=== PATIENT | female | born 1980 | race Caucasian/White ===

== ENCOUNTER 2021-03-13 18:29 | Inpatient (IN) ==
[2021-03-13] MEDS ORDERED: BUTORPHANOL 2 MG/ML VIAL IV PRN (19:51)
[2021-03-13] MEDS ORDERED: ONDANSETRON 4 MG/2 ML VIAL IV PRN (19:51)
[2021-03-13] MEDS ORDERED: MEPERIDINE 50 MG/1 ML VIAL IV PRN (19:51)
[2021-03-13] MEDS ORDERED: LACTATED RINGERS 1,000 ML IV SCH (20:00)
[2021-03-13 20:10] LABS: Basophils % 0.1 % (0.0-0.8); Eosinophils # 0.1 10*3/uL (0.0-0.87); Eosinophils % 0.9 % (0.00-10.9); Hematocrit 33.4 VOL% (35.7-47.0); Hemoglobin 11.2 GM/DL (12.0-16.0); Immature Granulocytes % 0.9 %; Immature Granulocytes Absolute 0.08 #; Lymphocytes # 1.2 10*3/uL (1.4-4.0); Lymphocytes % 13.8 % (21.3-54.2); Mean Corpuscular HGB Conc 33.5 GM/DL (32-36); Mean Platelet Volume 10.3 FL (9.6-12.0); Monocytes % 9.3 % (1.7-12.7); Platelet Count 148 T/CUMM (130-400); Red Blood Count 3.71 MC/CUMM (3.8-5.5); Red Cell Distribution Width 16.5 % (9.3-17.3); White Blood Count 8.5 T/CUMM (4-12)
[2021-03-13 20:32] LABS: Albumin 2.3 G/DL (3.4-5.0); Bilirubin,Total 0.5 MG/DL (0.20-1.00); Calcium 9.5 MG/DL (8.5-10.1); Osmolality,Calculated 273.7 MOS/KG (273-304); Potassium 4.1 MMOL/L (3.5-5.1)
[2021-03-13] MEDS ORDERED: ALUMINUM/MAGNES/SIMETH MAX STR 30 ML UDCUP PO PRN (22:58)
[2021-03-14] MEDS ORDERED: ACETAMINOPHEN 325 MG TABLET PO PRN ×2 (10:57→14:08)
[2021-03-14] MEDS ORDERED: TRANEXAMIC ACID 1,000 MG/10 ML VIAL ONE (13:01)
[2021-03-14] MEDS ORDERED: miSOPROStoL 200 MCG TABLET ONE (13:01)
[2021-03-14] MEDS ORDERED: SODIUM CHLORIDE 0.9% 100 ML IV ONE (13:02)
[2021-03-14] MEDS ORDERED: OXYTOCIN/LR 20 UNIT/1,000 ML BAG IV ONE ×2 (13:02→14:08)
[2021-03-14] MEDS ORDERED: METHYLERGONOVINE 0.2 MG/1 ML AMP ONE (13:02)
[2021-03-14] MEDS ORDERED: CARBOPROST TROMETHAMINE 250 MCG/ML AMP IM ONE (13:02)
[2021-03-14] MEDS ORDERED: LIDOCAINE 2% 20 ML VIAL ONE (13:03)
[2021-03-14] MEDS ORDERED: BISACODYL 10 MG SUPP RECTAL PRN (14:08)
[2021-03-14] MEDS ORDERED: DIPH/TET/ACEL PERT BOOSTER VACCINE 0.5 ML VIAL IM ONE (14:08)
[2021-03-14] MEDS ORDERED: HYDROCORTISONE 2.5% RECTAL CREAM 30 GM TUBE TOP PRN (14:08)
[2021-03-14] MEDS ORDERED: MEASLES/MUMPS/RUBELLA VACCINE 0.5 ML VIAL SUBCUT ONE (14:08)
[2021-03-14] MEDS ORDERED: ONDANSETRON 4 MG/2 ML VIAL IV PRN (14:08)
[2021-03-14] MEDS ORDERED: RHO(D) IMMUNE GLOBULIN 300 MCG SYRINGE IM ONE (14:08)
[2021-03-14] MEDS ORDERED: ACETAMINOPHEN/CODEINE 300-30 MG TABLET PO PRN ×2 (14:08)
[2021-03-14] MEDS ORDERED: LANOLIN 50% CREAM 0.3 OZ TUBE TOP PRN (14:08)
[2021-03-14] MEDS ORDERED: BENZOCAINE 20%/MENTHOL 0.5% SPRAY 56 GM CAN TOP PRN (14:08)
[2021-03-14] MEDS ORDERED: WITCH HAZEL PADS 100/JAR TOP PRN (14:08)
[2021-03-14 14:16] LABS: Cord Venous Blood HCO3 21.7 MMOL/L; Cord Venous Blood PCO2 37.1 MMHG; Cord Venous Blood PO2 29.4 MMHG
[2021-03-14] MEDS: IBUPROFEN 800 MG TABLET PO PRN (19:22)
[2021-03-14] MEDS: DOCUSATE SODIUM 100 MG CAPSULE PO SCH (21:49)
[2021-03-15] MEDS: IBUPROFEN 800 MG TABLET PO PRN ×2 (03:25→09:46)
[2021-03-15 06:06] LABS: Basophils % 0.4 % (0.0-0.8); Eosinophils # 0.2 10*3/uL (0.0-0.87); Eosinophils % 1.4 % (0.00-10.9); Hematocrit 32.1 VOL% (35.7-47.0); Hemoglobin 10.6 GM/DL (12.0-16.0); Immature Granulocytes % 0.9 %; Lymphocytes # 1.7 10*3/uL (1.4-4.0); Lymphocytes % 15.9 % (21.3-54.2); Mean Corpuscular Volume 90.7 FL (87-102); Mean Platelet Volume 10.9 FL (9.6-12.0); Monocytes % 8.9 % (1.7-12.7); Neutrophils % 72.5 % (38.7-73.9); Platelet Count 156 T/CUMM (130-400); Red Blood Count 3.54 MC/CUMM (3.8-5.5); Red Cell Distribution Width 16.4 % (9.3-17.3); White Blood Count 10.6 T/CUMM (4-12)
[2021-03-15] MEDS: DOCUSATE SODIUM 100 MG CAPSULE PO SCH ×2 (08:54→21:12)
[2021-03-15] MEDS: FERROUS SULFATE 325 MG TABLET PO SCH (08:54)
[2021-03-15] MEDS: MULTIVITAMIN (PRENATAL) TABLET PO SCH (08:54)
[2021-03-15] MEDS ORDERED: RHO(D) IMMUNE GLOBULIN 300 MCG SYRINGE IM ONE (09:20)
[2021-03-16] MEDS: IBUPROFEN 800 MG TABLET PO PRN (07:30)
[2021-03-16] MEDS: MULTIVITAMIN (PRENATAL) TABLET PO SCH (08:55)
[2021-03-16] MEDS: DOCUSATE SODIUM 100 MG CAPSULE PO SCH (08:55)
[2021-03-16] MEDS: FERROUS SULFATE 325 MG TABLET PO SCH (08:55)
[2021-03-16 09:25] VITALS: BP 115/74
== END 2021-03-16 14:05 | disposition home or self-care (01) | DRG 560 ==
LOC: N.LDOUT 18:29 → N.LD 18:31 → N.OB 03-14 18:15
PROVIDERS: ADMIT Obstetrics & Gynecology; ATTEND Obstetrics & Gynecology